=== PATIENT | male | born 1980 | race Hispanic/Latino ===

== ENCOUNTER 2022-08-28 09:15 | Emergency (ER) | payer SELFPAY ==
[2022-08-28 09:17] VITALS: BP 110/78; PULSE 78; RESP 16; TEMP 36.6; O2SAT 99; BMI 31.6
--- NOTE | 2022-08-28 09:25 | EDS_ITS ---
HPI History of Present Illness Chief Complaint: Rash Detail of Chief Complaint: Rash Informant: patient and family Narrative Narrative: Patient presents to the emergency department complaint of a rash that initially started about 10 days ago. Patient is [place]ian-speaking but has his brother with him who gives history via translation. Patient also understands Persian to some extent. Apparently patient was under a tree and touched a tree prior to the rash beginning. Another individual had a similar rash on his hand. Patient has not sought treatment for this but has not gotten much better. He denies lip or tongue swelling. Denies difficulty breathing. Denies new soaps or detergents or other allergens. No new medications. PFSH PFSH Home Medications prednisone 20 mg tablet 20 mg PO BID #14 tabs 08/28/22 [Rx Last Taken Unknown] Allergy/AdvReac Type Severity Reaction Status Date / Time No Known Allergies Allergy Verified 08/28/22 09:16 ROS ROS ED Review of Systems ROS Unobtainable: other Constitutional Constitutional ED: Reports lethargy; Denies chills, fever(s), sweats or weight loss Eyes Eyes: Denies blurry vision, change in vision or diplopia ENT ENT ED: Denies rhinorrhea or sore throat Cardiovascular Cardiovascular: Denies chest pain, orthopnea or racing heartbeat Respiratory/Chest Respiratory/Chest: Denies cough, dyspnea, dyspnea on exertion, orthopnea or sputum Gastrointestinal Gastrointestinal: Denies abdominal pain, diarrhea, nausea or vomiting Genitourinary Genitourinary ED: Denies dysuria, hematuria or urinary frequency Musculoskeletal Musculoskeletal: Denies arthralgias, back pain, myalgias or neck pain Integumentary Reports rash; Denies abscess or Abrasions Neurologic Neurologic: Denies headache(s) or weakness Psychiatric Psychiatric: Denies anxiety, depression or suicidal thoughts Endocrine Endocrinology: Denies polydipsia, polyphagia or polyuria Hematologic/Lymphatic Hematologic/Lymphatic: Denies easy bleeding, easy bruising or lymphadenopathy Allergic/Immunologic Allergic/Immunologic ED: Denies mouth swelling, tongue swelling or urticaria EXAM Physical Exam Const Vital Signs: 08/28/22 09:17 Temperature 97.8 F Temperature Source Temporal Pulse Rate 78 Respiratory Rate 16 Blood Pressure 110/78 Blood Pressure Mean 88 Pulse Ox 99 Oxygen Delivery Method Room Air Positive well nourished and well developed General Appearance ED: well developed and NAD HEENT Reports TM's clear and moist mucous membranes normocephalic and atraumatic; Negative for trauma or tenderness Tympanic Membrane ED: Yes TM's clear Eyes PERRL and EOMs intact bilaterally General Eye ED: Negative for pale conjunctiva or scleral icterus Neck no lymphadenopathy, supple and no JVD General: Negative for tenderness Chest Wall inspection of chest normal and palpation of chest normal Chest: Negative for tenderness Resp normal respiratory effort and clear to auscultation bilaterally Effort and Inspection: Negative for respiratory distress or pain with movement Auscultation: Negative for rhonchi, wheezes or diminished lung sounds Cardio regular rate, regular rhythm, S1 normal heart sound, S2 normal heart sound and no murmurs Peripheral Pulses: pulses 2+ throughout GI normal to inspection, nondistended, normoactive bowel sounds, soft to palpation, non-tender, non-distended and no masses Back/Spine no CVA tenderness and no thoracic nor lumbar tenderness Extremity normal to inspection General Extremety ED: Negative for edema General Extremity: Negative for edema Neuro oriented x3, CN's II-XII intact bilaterally, no sensory deficits noted and gait normal Sensorium / Orientation: awake, alert, oriented to person, oriented to place and oriented to time Motor Exam: strength 5/5 throughout and strength abnormal Psych mental status grossly normal Skin no wounds Skin Narrative: Evaluation of the left upper extremity does reveal an erythematous and excoriated slightly vesicular rash involving the antecubital region of the left arm as well as the upper arm anteriorly. Rash is typical of a Kya type dermatitis. Small areas of weeping noted. Patient also with similar type rash noted on the anterior abdomen although not as extensive. MDM MDM MDM Narrative Medical decision making narrative: Patient presents with what I suspect is a contact dermatitis after touching a tree. Suspect possibly poison shivani or poison oak. Clinically looks well. We will start patient on prednisone and advised to use Benadryl for any itching. He can use calamine lotions to the area. Patient will be given referral to primary care physician for follow-up within next 7 to 10 days. There is no evidence of cellulitis or secondary infection. Patient advised to return if fever, difficulty breathing or lip or tongue swelling or if condition should worsen anyway. Discharge Plan Triage Chief Complaint: Rash ED Provider: Paul Mckeon Dx/Rx/DC Orders Clinical Impression: Contact dermatitis due to poison oak Instructions: ED Poison Shivani or Poison [place] Rash Prescriptions: New prednisone 20 mg tablet 20 mg PO BID Qty: 14 0RF Referrals: Jaya Hitchcock MD [Med Staff - Customer Engineering Specialist] - 1 Week if not improving Disposition Disposition: Home, Self Care
[2022-08-28] MEDS: predniSONE 20 MG Tablet 60 MG PO (09:50)
== END 2022-08-28 09:53 | disposition home or self-care (01) ==
PROVIDERS: Emergency Provider Emergency Medicine; Visit Provider Emergency Medicine
DX: L23.7 Allergic contact dermatitis due to plants, except food (principal)
CPT/HCPCS: 99283